=== PATIENT | male | born 1970 | race Caucasian/White ===

== ENCOUNTER 2017-01-10 16:06 | Emergency (ER) | payer BC ==
--- NOTE | ~2017-01-10 | CT71 ---
[facility] A Service of [facility] RADIOLOGY TEXT RESULTS PATIENT: SHAQ CRUZ LOCATION: SED : 71 UNIT #: [id number] AGE: [address]: PARKER WOO SEX: M ORDER DR: [id number] [place] [id number] E MR#: [id number] Acc #: [id number] NAME: SHAQ CRUZ : 1970 SEX: M STUDY DATE/TIME: 01/10/2017 18:16 UNIT: SED ROOM: STUDY DESCRIPTION: CT Head Wo Contrast Attending Physician: Parker Woo Aprn Ordering Physician: Parker Woo Aprn MEDICAL IMAGING REPORT This report is preliminary unless electronic signature is present. EXAM Head CT without contrast, 01/10/17. HISTORY Right hand tremors and right shoulder pain for 2 months. Right side neck pain for 2 weeks. No known injury. FINDINGS Multiple axial images were obtained from skull base to vertex without intravenous contrast administration. This CT exam was performed with one or more of the following radiation dose reduction techniques: automatic exposure control, adjustment of mA and/or kV according to patient size, and iterative reconstruction. The ventricles are normal in size, shape and position. There is no midline shift. There is no mass or mass effect, hemorrhage or acute infarct. Air-fluid level is seen within the left maxillary sinus and there is mucosal thickening in the ethmoid sinuses characteristic of sinusitis. IMPRESSION 1. No intracranial abnormality. 2. Left maxillary and bilateral ethmoid sinusitis. Dictated by... Davie Mendez M.D. THIS IS AN ELECTRONICALLY VERIFIED REPORT Davie Mendez M.D. at 01/13/2017 8:26 AM TOD/mable TD: 01/10/2017 23:23 [facility] A Service of [facility] RADIOLOGY TEXT RESULTS PATIENT: SHAQ CRUZ LOCATION: SED : 71 UNIT #: [id number] AGE: [address]: PARKER WOO SEX: M ORDER DR: JOB #: [id number] MEDICAL IMAGING REPORT Page 1 of 1
--- NOTE | ~2017-01-10 | CT52 ---
[facility] A Service [facility] RADIOLOGY TEXT RESULTS PATIENT: SHAQ CRUZ LOCATION: SED : 71 UNIT #: [id number] AGE: [address]: PARKER WOO SEX: M ORDER DR: [id number] [place] [id number] E MR#: [id number] Acc #: [id number] NAME: SHAQ CRUZ. : 1970 SEX: M STUDY DATE/TIME: 01/10/2017 18:19 UNIT: SED ROOM: STUDY DESCRIPTION: CT Cervical Spine Wo Cont Attending Physician: Parker Woo Aprn Ordering Physician: Parker Woo Aprn MEDICAL IMAGING REPORT This report is preliminary unless electronic signature is present. EXAM CT cervical spine 01/10/2017 HISTORY 46-year-old male in the ED complaining of 2-week history of right side neck pain. Right shoulder pain and right hand tremors over the last 2 months. No reported acute injury. TECHNIQUE Thin-section axial CT images were obtained from the skull base through the lower margin of T3. Sagittal and coronal images were reconstructed. This CT exam was performed with one or more of the following radiation dose reduction techniques: automatic control, adjustment of mA and/or kV according to patient size, and iterative reconstruction. FINDINGS No acute or chronic fracture deformity or additional osseous abnormality is demonstrated. Cervical disc spaces and cervical vertebral alignment are within normal limits. Soft tissues within the spinal canal and within the neck show no visible abnormality. IMPRESSION Negative CT examination of the cervical spine. Dictated by... Tan Le M.D. THIS IS AN ELECTRONICALLY VERIFIED REPORT Tan Le M.D. at 01/14/2017 10:33 AM RGW/rnr [facility] A [facility] RADIOLOGY TEXT RESULTS PATIENT: SHAQ CRUZ LOCATION: SED : 71 UNIT #: [id number] AGE: [address]: PARKER WOO SEX: M ORDER DR: TD: 01/10/2017 23:21 JOB #: [id number] MEDICAL IMAGING REPORT Page 1 of 1
== END 2017-01-10 19:08 | disposition home or self-care (01) ==
LOC: SED 16:06
DX: R53.1 Weakness (principal); F17.210 Nicotine dependence, cigarettes, uncomplicated
CPT/HCPCS: 70450; 72125; 99284

== ENCOUNTER 2017-01-15 04:28 | Emergency (ER) | payer BC ==
--- NOTE | ~2017-01-15 | EKG ---
PATIENT: SHAQ CRUZ UNIT #: [id number] Ventricular Rate: 85 BPM Atrial Rate: 85 BPM P-R Interval: 130 ms QRS Duration: 82 ms Q-T Interval: 356 ms QTC Calculation(Bezet): 423 ms P Westley: 55 degrees Calculated R Westley: 74 degrees Calculated T Westley: 51 degrees Diagnosis Line: Normal sinus rhythm Diagnosis Line: Minimal voltage criteria for LVH, may be normal Diagnosis Line: variant Diagnosis Line: Borderline ECG Diagnosis Line: No previous ECGs available Diagnosis Line: Confirmed by RYANNE JOHNSON MD ([id number]) on Diagnosis Line: 01/16/2017 7:20:24 AM INTERPRETING : GISELL
--- NOTE | ~2017-01-15 | CR72 ---
[facility] A Service of [place] [facility] RADIOLOGY TEXT RESULTS PATIENT: SHAQ CRUZ LOCATION: [facility] : 71 UNIT #: [id number] AGE: [address]: Janice Bustos APRN SEX: M ORDER DR: [id number] [facility] [address] [place], [place] [address] [id number] E MR#: [id number] Acc #: [id number] NAME: SHAQ CRUZ. : 1970 SEX: M STUDY DATE/TIME: 01/15/2017 05:49 UNIT: [facility] ROOM: STUDY DESCRIPTION: CR Chest Single View Portable Attending Physician: Janice Bustos A.P.R.N. Ordering Physician: Janice Bustos A.P.R.N. Primary Care Physician: Primary Care Physician No MEDICAL IMAGING REPORT This report is preliminary unless electronic signature is present EXAM Portable chest, 01/15 at 05:49 INDICATION Shortness of air and cough and hypertension for 1 day. FINDINGS A single AP portable view of the chest shows both lungs to be clear. The heart is normal in size. The mediastinal contour is normal. No significant bone abnormalities are seen. IMPRESSION Normal portable chest. Dictated by... Stephan Fuller Jr., M.D. THIS IS AN ELECTRONICALLY VERIFIED REPORT Stephan Fuller Jr., M.D. at 01/15/2017 9:54 PM SAMARA/irene TD: 01/15/2017 09:23 JOB #: [id number] MEDICAL IMAGING REPORT Page 1 of 1 COPY
[2017-01-15 05:49] LABS: URINE SOURCE CLEAN CATCH
[2017-01-15 05:56] LABS: BASOPHIL% 0.2 % (0-2.5); EOSINOPHIL% 0.3 % (0.0-7.0); HEMATOCRIT 45.8 % (38.0-50.0); HEMOGLOBIN 15.3 gm/dL (13.0-16.0); LYMPHOCYTE# 1.9 X10e3 (1.0-3.5); LYMPHOCYTE% 13.8 % (17.0-45.0); MEAN CELL VOLUME 88.2 FL (83-96); MEAN CORPUSCULAR HEMOGLOBIN 29.4 PG (28-34); MEAN CORPUSCULAR HGB CONC 33.3 g/dL (30-36); MEAN PLATELET VOLUME 7.1 FL (6.5-11.5); MONOCYTE# 1.6 X10e3 (0-1.0); MONOCYTE% 11.5 % (3.0-12.0); NEUTROPHIL# 10.1 X10e3 (1.5-7.1); NEUTROPHIL% 74.2 % (40-75); PLATELET COUNT 267 X10e3 (140-420); RED BLOOD COUNT 5.19 X10e (3.90-5.60); RED CELL DISTRIBUTION WIDTH 13.9 % (11.0-15.5); WHITE BLOOD COUNT 13.6 X10e3 (4.0-10.5)
[2017-01-15 05:57] LABS: DIFF IND NO
[2017-01-15 06:16] LABS: URINE APPEARANCE TURBID; URINE BILIRUBIN NEG (NEG); URINE BLOOD NEG (NEG); URINE COLOR YELLOW; URINE GLUCOSE NEG (NEG); URINE KETONE NEG (NEG); URINE LEUKOCYTE ESTERASE NEG (NEG); URINE NITRATE NEG (NEG); URINE PROTEIN NEG (NEG); URINE SPECIFIC GRAVITY 1.024 (1.003-1.035)
[2017-01-15 06:23] LABS: CULTURE INDICATED? NO
[2017-01-15 06:29] LABS: ALBUMIN SERUM 4.5 g/dL (3.5-5.0); ALCOHOL BLOOD <5 mg/dL (0); ALKALINE PHOSPHATASE 70 U/L (32-92); ALT (SGPT) 24 U/L (10-40); AMYLASE 18 U/L (0-46); AST (SGOT) 20 U/L (10-42); BILIRUBIN, DIRECT 0.1 mg/dL (0.0-0.2); BILIRUBIN,INDIRECT 0.9 mg/dL (0.0-0.9); BLOOD UREA NITROGEN 11 mg/dL (9-23); BUN/CREATININE RATIO 13.75; CALCIUM SERUM 9.4 mg/dL (8.4-10.2); CARBON DIOXIDE 28 mmol/L (22-31); CHLORIDE 98 mmol/L (100-111); CREATININE SERUM 0.8 mg/dL (0.6-1.4); GLOM FILT RATE Estimated 107.9 mL/min (>60); GLUCOSE FASTING 128 mg/dL (70-110); LIPASE 18 U/L (22-51); POTASSIUM 4.4 mmol/L (3.5-5.1); PROTEIN TOTAL SERUM 6.9 g/dL (6.0-8.3); SODIUM 135 mmol/L (135-145)
[2017-01-15 06:38] LABS: AMPHETAMINE NEG (NEG); BARBITURATES NEG (NEG); BENZODIAZEPINES POS (NEG); COCAINE NEG (NEG); MARIJUANA NEG (NEG); OPIATES NEG (NEG); TRICYCLIC ANTIDEPRESSANTS NEG (NEG); U METHADONE NEG (NEG)
== END 2017-01-15 07:25 | disposition home or self-care (01) ==
LOC: CED 04:28
PROVIDERS: Nurse Practitioner
DX: F10.239 Alcohol dependence with withdrawal, unspecified (principal); F17.200 Nicotine dependence, unspecified, uncomplicated
CPT/HCPCS: 36415; 71010; 80048; 80076; 80307; 81003; 82150; 82947; 83690; 85025; 93005; 96361; 96374; 99284; G0480; J2060

== ENCOUNTER 2017-02-25 14:45 | Emergency (ER) | payer BC ==
[~2017-02-25] VITALS: Ht 175.3 cm; Wt 59.9 kg
--- NOTE | ~2017-02-25 | CR63 ---
[facility] A Service of [facility] RADIOLOGY TEXT RESULTS PATIENT: SHAQ CRUZ LOCATION: [facility] : 71 UNIT #: [id number] AGE: [address]: PARKER WOO SEX: M ORDER DR: [id number] [facility] [address] [place], [place] [address] [id number] E MR#: [id number] Acc #: [id number] NAME: SHAQ CRUZ. : 1970 SEX: M STUDY DATE/TIME: 02/25/2017 15:27 UNIT: [facility] ROOM: STUDY DESCRIPTION: CR Chest 2 View Attending Physician: Parker Woo Aprn Ordering Physician: Parker Woo Aprn Primary Care Physician: No Primary Care Physician MEDICAL IMAGING REPORT This report is preliminary unless electronic signature is present EXAM PA and lateral chest, 02/25/2017. HISTORY Chest pain for 6 weeks. Short of air with activity. COMPARISON 01/15/2017 FINDINGS PA and lateral views of the chest were obtained. The heart size and vascularity are normal, and the lungs are clear. The bones are unremarkable. IMPRESSION No active disease. Dictated by... Ulysses Abbott M.D. THIS IS AN ELECTRONICALLY VERIFIED REPORT Ulysses Abbott M.D. at 02/26/2017 10:03 AM Young TD: 02/25/2017 17:24 JOB #: [id number] MEDICAL IMAGING REPORT Page 1 of 1 COPY
== END 2017-02-25 16:10 | disposition home or self-care (01) ==
LOC: CED 14:45 → CFTX 14:45
DX: M25.511 Pain in right shoulder (principal); F17.210 Nicotine dependence, cigarettes, uncomplicated
CPT/HCPCS: 71020; 99283; J1200; J2765